=== PATIENT | male | born 2000 | race Caucasian/White ===

== ENCOUNTER 2021-04-02 19:32 | Emergency (ER) | payer OTHER, SELFPAY ==
[2021-04-02 20:20] VITALS: BP 132/84; PULSE 83; RESP 18; TEMP 37.1; O2SAT 99; BMI 25.1
--- NOTE | 2021-04-02 20:25 | DI.RAD.S_ITS ---
PROCEDURE: XR FOREARM LT 2V INDICATIONS: forearm pain after injury TECHNIQUE: 2 views of the forearm were acquired. COMPARISON: None. FINDINGS: Bones: No fractures or dislocations. No suspicious bony lesions. Soft tissues: No suspicious soft tissue calcifications or masses. IMPRESSION: No visualized acute fracture or dislocation. However, if clinical concern and/or pain persist, short interval imaging followup in 7-10 days is recommended, as occult injury cannot be definitively excluded. Dictated by: Destinee Canas M.D. on 04/02/2021 at 21:47 Approved by: Destinee Canas M.D. on 04/02/2021 at 21:48
--- NOTE | 2021-04-02 21:03 | ED_ITS ---
HPI - Extremity Injury (Upper) General Chief Complaint: Extremity Injury, Upper Stated Complaint: Poss LT Forearm fracture Time Seen by Provider: 04/02/21 20:15 Source: patient Mode of arrival: Ambulatory Limitations: no limitations History of Present Illness HPI narrative: 20-year-old male nonsmoker, otherwise healthy presents with a friend and a chief complaint of an injury to his left forearm just prior to [employer]. He was working and slipped and fell, wedging his forearm between to immovable object. He now has pain on the volar aspect of his forearm with some bruising and swelling. There is no break in the skin and he denies any other injury. He has no numbness, tingling or weakness. MD complaint: injury to: left and forearm Onset (ago): minute(s) Other injuries: none Handedness: right Place: work Severity: moderate Relieving factors: rest Exacerbating factors: none Context: direct blow Associated symptoms: denies other symptoms Related Data Allergies Allergy/AdvReac Type Severity Reaction Status Date / Time No Known Drug Allergies Allergy Verified 04/02/21 20:20 Review of Systems Constitutional Constitutional: Denies chills, Denies fatigue, Denies fever(s), Denies frequent falls, Denies lethargy and Denies weakness Eyes Eyes: Denies change in vision, Denies eye discharge, Denies irritation and Denies loss of vision ENT Ears, Nose, Mouth, and Throat: Denies change in voice, Denies dizziness, Denies neck pain, Denies sore throat and Denies throat swelling Cardiovascular Cardiovascular: Denies chest pain, Denies irregular heart rhythm, Denies lightheadedness, Denies palpitations, Denies dyspnea, Denies dyspnea on exertion and Denies orthopnea Respiratory Respiratory: Denies cough, Denies dyspnea, Denies dyspnea on exertion and Denies wheezing Gastrointestinal Gastrointestinal: Denies abdominal pain, Denies change in bowel habits, Denies diarrhea, Denies nausea and Denies vomiting Musculoskeletal Musculoskeletal: Denies neck pain and Denies numbness Integumentary/Breasts Skin/Breast: Denies pruritus, Denies erythema, Denies rash and Denies wounds Neurologic Neurologic: Denies behavioral changes, Denies confusion, Denies dizziness, Denies frequent falls, Denies loss of vision, Denies numbness and Denies weakness Psychiatric Psychiatric: Denies anxiety, Denies behavioral changes, Denies confusion, Denies depression, Denies homicidal ideation and Denies suicidal ideation Endocrine Endocrine: Denies fatigue, Denies flushing and Denies palpitations Hematologic/Lymphatic Hematologic/Lymphatic: Denies easy bruising Allergic/Immunologic Allergic/Immunologic: Denies urticaria, Denies throat swelling and Denies wheezing Patient History Social History Smoking Status: Never smoker Smoking Status: Never smoker Substance Use Type: does not use Exam Narrative Exam Narrative: GEN: 20-year-old male appears stated age.AOx3 and in mild distress EYES: Pupils are equal, round, and reactive to light and accommodation. Extraoccular muscles are intact bilaterally. There is no subconjunctival hemorrhage or exudate. CHEST: Lungs are clear to auscultation bilaterally and free of wheezes, rales, or rhonchi. Heart rate is regular rhythm, there are no murmurs, clicks, rubs, or gallops. There is no chest wall tenderness. ABD: Abdomen is soft and nontender. There is no guarding or rebound. Bowel sounds are normal in all 4 quadrants. There is no mass or organomegaly. EXT: Full but painful range of motion of left arm below the elbow. This is closed, isolated and neurovascularly intact. There is some ecchymosis over the volar aspect of the mid forearm. Compartments are soft SKIN: Warm, pink, and dry. No erythema or rash Initial Vital Signs Initial Vital Signs: Vital Signs Temperature 98.7 F 04/02/21 20:20 Pulse Rate 83 04/02/21 20:20 Respiratory Rate 18 04/02/21 20:20 Blood Pressure 132/84 04/02/21 20:20 Pulse Oximetry 99 04/02/21 20:20 Course Orders Ordered: ED Orders 04/02/21 20:25 XR forearm LT 2V Stat Vital Signs Vital signs: Vital Signs - 8 hr 04/02/21 20:20 Temperature 98.7 F Pulse Rate 83 Respiratory Rate 18 Blood Pressure 132/84 Pulse Oximetry 99 MDM - Extremity Injury (Upper) Imaging Data Extremity x-ray #1: Attestation: I personally reviewed and interpreted this imaging study as follows: My Impression: no fracture or dislocation Radiologist's Impression: [address] [id number] ReportSigned Patient: Vane Sandhu#: [id number]: 2000Acct:[id number]/Sex: 20 / MDate of Service: 04/02/21Loc: EDAccession Number: [id number] Procedure: XR forearm LT 2V Ordering Provider: Francisco Angulo D.O. PROCEDURE: XR FOREARM LT 2V INDICATIONS: forearm pain after injury TECHNIQUE: 2 views of the forearm were acquired. COMPARISON: None. FINDINGS: Bones: No fractures or dislocations. No suspicious bony lesions. Soft tissues: No suspicious soft tissue calcifications or masses. IMPRESSION: No visualized acute fracture or dislocation. However, if clinical concern and/or pain persist, short interval imaging followup in 7-10 days is recommended, as occult injury cannot be definitively excluded. Dictated by: Destinee Canas M.D. on 04/02/2021 at 21:47 Approved by: Destinee Canas M.D. on 04/02/2021 at 21:48 Discharge Plan Departure Patient Disposition: Home Clinical Impression: Contusion of forearm, left Qualifiers: Encounter type: initial encounter Qualified Code(s): S50.12XA - Contusion of left forearm, initial encounter Instructions: DI for Contusion Activity Restrictions/Additional Instructions: *You have been diagnosed with [Left forearm contusion, no evidence of fracture or dislocation on x-rays ] *What to do: *Please continue to take your regular medications as directed. [ ] New medication prescriptions sent to your pharmacy: [ ] [ ] New medication written as a paper prescription [ ] No new medications given *Please follow up with your primary care provider in 2-3 days, call for an appointment. Let them know you were seen in the Emergency Department and that we ask that you be seen in follow up. We will electronically transmit a record of today's note if your PCP is in our system *If you do not have a primary care provider please contact the [facility] Resource line at [phone]. They will ask some questions about your medical history and help get you set up with a doctor in the community. *Return to Emergency Department if you should have any new, worsening or concerning symptoms, such as [fever greater than 101 F, shaking chills, worsening pain, persistent vomiting or other bothersome symptoms] Referrals: Jaime Adamson MD [Primary Care Provider] -
== END 2021-04-02 21:22 | disposition home or self-care (01) ==
PROVIDERS: Emergency Provider Emergency Medicine; PCP Orthopaedic Surgery Hand Surgery
DX: S50.12XA Contusion of left forearm, initial encounter (principal); W19.XXXA Unspecified fall, initial encounter
CPT/HCPCS: 73090; 99283